=== PATIENT | female | born 1935 | race Caucasian/White ===

== ENCOUNTER 2020-08-29 22:23 | Inpatient (IN) | payer OTHER ==
[~2020-08-29] VITALS: Ht 162.6 cm; Wt 54.4 kg
[2020-08-29 22:28] VITALS: BP_SYST 111
[2020-08-29] MEDS ORDERED: ACET325T PO (22:40)
[2020-08-29] MEDS ORDERED: ASCO500T20 PO (22:41)
[2020-08-29] MEDS ORDERED: ALBMDI INH (22:41)
[2020-08-29] MEDS ORDERED: ASPI-1155 PO (22:42)
[2020-08-29] MEDS ORDERED: BISA10SU61 RC (22:43)
[2020-08-29] MEDS ORDERED: BISA-79 PO (22:43)
[2020-08-29] MEDS ORDERED: GLIP10TA11 PO (22:44)
[2020-08-29] MEDS ORDERED: MELA3TAB69 PO (22:44)
[2020-08-29] MEDS ORDERED: METF1000 PO (22:45)
[2020-08-29] MEDS ORDERED: METO25TA6 PO (22:45)
[2020-08-29] MEDS ORDERED: MULT-1100 PO (22:46)
[2020-08-29] MEDS ORDERED: OMEP20CA15 PO (22:47)
[2020-08-29] MEDS ORDERED: VITD2000 PO (22:49)
[2020-08-29] MEDS ORDERED: ZINC220T4 PO (22:52)
[2020-08-29] MEDS ORDERED: CEPH250C PO (22:58)
[2020-08-30] VITALS (7 sets, daily range): BP systolic 106–126
[2020-08-30 00:05] LABS: ANION GAP 13 (5-15); CALCIUM 8.6 mg/dL (8.4-11.0); CHLORIDE 103 mmol/L (98-107); GLUCOSE 144 mg/dL (70-99); POTASSIUM 4.3 mmol/L (3.5-5.1); SODIUM SERUM 137 mmol/L (136-145); UREA NITROGEN, BLOOD 50 mg/dL (8-21)
[2020-08-30 00:06] LABS: BASOPHILS % (AUTO) 0.2 % (0.0-2.0); HEMATOCRIT 37.4 % (36-48); HEMOGLOBIN 12.1 g/dL (12.0-16.0); LYMPHOCYTES # (AUTO) 0.7 K/uL (1.0-5.5); LYMPHOCYTES % (AUTO) 4.2 % (20.5-51.5); MEAN CORPUSCULAR HEMOGLOBIN 30 pg (27-31); MEAN CORPUSCULAR HGB CONC 32 % (32-36); MEAN CORPUSCULAR VOLUME 91 fL (79.0-98.0); MONOCYTES # (AUTO) 0.7 K/uL (0.0-1.0); MONOCYTES % (AUTO) 4.2 % (1.7-9.3); NEUTROPHILS # (AUTO) 15.3 K/uL (1.8-7.7); NEUTROPHILS % (AUTO) 91.4 % (40.0-70.0); PLATELET COUNT (AUTO) 226 K/uL (130-430); RED BLOOD CELL COUNT(AUTO) 4.09 MIL/uL (4.2-6.2); RED CELL DISTRIBUTION WIDTH 17.4 % (9.0-15.0); WHITE BLOOD COUNT (AUTO) 16.7 K/uL (4.8-10.8)
[2020-08-30] MEDS ORDERED: NACL 0.9% 1,000 ML IV ONE (01:45)
[2020-08-30 02:16] LABS: BILIRUBIN,URINE NEGATIVE (NEGATIVE); BLOOD, URINE NEGATIVE (NEGATIVE); CLARITY/URINE CLEAR (CLEAR); COLOR,URINE YELLOW (YELLOW); GLUCOSE,URINE NEGATIVE (NEGATIVE); KETONES,URINE TRACE (NEGATIVE); LEUKOCYTE ESTERASE ,URINE NEGATIVE (NEGATIVE); NITRITE, URINE NEGATIVE (NEGATIVE); PROTEIN URINE TRACE (NEGATIVE)
[2020-08-30] MEDS ORDERED: MORPHINE 2 MG/ML INJ. SYRINGE IVP ONE (03:30)
[2020-08-30] MEDS ORDERED: LEVOFLOXACIN IN DEXTROSE 5 % 100 ML IV ONE (03:30)
[2020-08-30] MEDS ORDERED: METOCLOPRAMIDE HCL 10 MG/2 ML VIAL IVP ONE (03:30)
[2020-08-30] MEDS ORDERED: CLINDAMYCIN 900 MG in D5W 100 ML IV ONE (03:30)
[2020-08-30] MEDS ORDERED: CLINDAMYCIN 900 mg/50mL D5W 50 ML IV ONE (03:39)
[2020-08-30] MEDS ORDERED: NACL 0.9% 1,000 ML IV SCH (03:45)
[2020-08-30] MEDS ORDERED: LORazepam 2 MG/ML VIAL IVP ONE (04:45)
[2020-08-30] MEDS: D5/0.45 NS 1,000 ML IV SCH ×3 (07:36→23:00)
[2020-08-30 07:48] LABS: THYROID STIMULATING HORMONE 1.09 uIu/mL (0.34-4.82)
[2020-08-30] MEDS ORDERED: BISACODYL 5 MG TABLET.DR (DULCOLAX) PO PRN (08:15)
[2020-08-30] MEDS ORDERED: ACETAMINOPHEN 325 MG TABLET PO PRN ×2 (08:15→08:45)
[2020-08-30] MEDS ORDERED: OMEPRAZOLE Non-Formulary 20 MG CAPSULE.DR PO SCH (08:15)
[2020-08-30] MEDS ORDERED: PANTOPRAZOLE SODIUM 40 MG TAB PO SCH (09:00)
[2020-08-30] MEDS ORDERED: ASPIRIN 81 MG TAB.CHEW PO SCH (09:00)
[2020-08-30] MEDS ORDERED: ASCORBIC ACID 500 MG TABLET PO SCH (09:00)
[2020-08-30] MEDS ORDERED: CHOLECALCIFEROL (VITAMIN D3) 2,000 UNIT TABLET PO SCH (09:00)
[2020-08-30] MEDS ORDERED: metFORMIN HCL 500 MG TABLET PO ONE (10:00)
[2020-08-30] MEDS: METOPROLOL TARTRATE 25 MG TABLET PO SCH ×2 (10:42→21:26)
[2020-08-30] MEDS: CLINDAMYCIN PHOS 900 MG/ D5W 50 ML PREMIX IV SCH ×2 (11:46→21:26)
[2020-08-30] MEDS ORDERED: CLINDAMYCIN 900 mg/50mL D5W 50 ML IV SCH (12:00)
[2020-08-30] MEDS ORDERED: metFORMIN HCL 500 MG TABLET PO SCH (18:00)
[2020-08-30] MEDS ORDERED: LORazepam 2 MG/ML VIAL IVP PRN (21:30)
[2020-08-31] VITALS: BP_SYST 124
[2020-08-31] MEDS ORDERED: LEVOFLOXACIN IN DEXTROSE 5 % 100 ML IV SCH (04:00)
[2020-08-31] MEDS ORDERED: LEVOFLOXACIN IN DEXTROSE 5 % 100 ML IV ONE (04:37)
[2020-08-31] MEDS: CLINDAMYCIN PHOS 900 MG/ D5W 50 ML PREMIX IV SCH (04:38)
[2020-08-31] MEDS: D5/0.45 NS 1,000 ML IV SCH (04:39)
[2020-08-31 06:46] LABS: HEMATOCRIT 36.2 % (36-48); HEMOGLOBIN 11.8 g/dL (12.0-16.0); LYMPHOCYTES # (AUTO) 0.9 K/uL (1.0-5.5); LYMPHOCYTES % (AUTO) 5.9 % (20.5-51.5); MEAN CORPUSCULAR HEMOGLOBIN 30 pg (27-31); MEAN CORPUSCULAR HGB CONC 33 % (32-36); MEAN CORPUSCULAR VOLUME 91 fL (79.0-98.0); MONOCYTES # (AUTO) 0.7 K/uL (0.0-1.0); MONOCYTES % (AUTO) 4.8 % (1.7-9.3); NEUTROPHILS % (AUTO) 89.3 % (40.0-70.0); PLATELET COUNT (AUTO) 226 K/uL (130-430); RED BLOOD CELL COUNT(AUTO) 3.97 MIL/uL (4.2-6.2); RED CELL DISTRIBUTION WIDTH 17.2 % (9.0-15.0); WHITE BLOOD COUNT (AUTO) 14.6 K/uL (4.8-10.8)
[2020-08-31 08:40] LABS: ALANINE AMINOTRANSFERASE 85 U/L (12-78); ALBUMIN 2.4 g/dL (3.4-4.8); ANION GAP 14 (5-15); ASPARTATE AMINOTRANSFERASE 31 U/L (10-37); CALCIUM 8.2 mg/dL (8.4-11.0); CHLORIDE 105 mmol/L (98-107); CREATININE 1.52 mg/dL (0.55-1.30); GLUCOSE 364 mg/dL (70-99); POTASSIUM 4.8 mmol/L (3.5-5.1); SODIUM SERUM 136 mmol/L (136-145); TOTAL BILIRUBIN 1.7 mg/dL (0.0-1.0); UREA NITROGEN, BLOOD 51 mg/dL (8-21)
[2020-08-31] MEDS ORDERED: CEFEPIME 1 GM in D5W 50 ML IV SCH (09:00)
== END 2020-08-31 07:48 | DRG 871 ==
LOC: SED 22:23 → UNDOADMIN 08-30 03:16 → STU 08-30 03:16
PROVIDERS: ADMIT Internal Medicine; ATTEND Internal Medicine
PROC: 0BH17EZ Insertion of Endotracheal Airway into Trachea, Via Natural or Artificial Opening (ICD-10-PCS; principal; 2020-08-31)
PROC: 5A12012 Performance of Cardiac Output, Single, Manual (ICD-10-PCS; 2020-08-31)
DX: A41.9 Sepsis, unspecified organism (principal); J18.9 Pneumonia, unspecified organism; R65.21 Severe sepsis with septic shock; L03.116 Cellulitis of left lower limb; L03.115 Cellulitis of right lower limb; L97.419 Non-pressure chronic ulcer of right heel and midfoot with unspecified severity; L97.929 Non-pressure chronic ulcer of unspecified part of left lower leg with unspecified severity; Z20.822 Contact with and (suspected) exposure to COVID-19; E11.621 Type 2 diabetes mellitus with foot ulcer; F03.90 Unspecified dementia, unspecified severity, without behavioral disturbance, psychotic disturbance, mood disturbance, and anxiety; I10 Essential (primary) hypertension; Z79.899 Other long term (current) drug therapy; Z79.82 Long term (current) use of aspirin
CPT/HCPCS: 36415; 71045; 80048; 80053; 80061; 81003; 82962; 83605; 84443; 85025; 87040-TC; 87081; 96361; 96365; 96375; 99285; G0378; J0692; J1956; J2060; J2270; J2765; J3490; J7030; J7060; U0003